=== PATIENT | female | born 1965 | race Caucasian/White ===

== ENCOUNTER 2021-04-04 12:31 | Emergency (ER) | payer OTHER ==
--- NOTE | 2021-04-04 13:07 | ERPHSYRPT ---
- History of Present Illness Time Seen by Provider: 04/04/21 13:04 Source: patient Exam Limitations: no limitations Patient Subjective Stated Complaint: pt here for congestion, sob,and wheezes since 03/31/20, no fever Triage Nursing Assessment: pt alert, resp easy, wheezes heard, skin w/d/p. face mask in place Physician History: Patient is 55-year-old female with significant past medical history of hypertension diabetes hyperlipidemia history of bipolar disorder started having nasal congestion chest congestion for last 3 to 4 days. She called her primary care physician and they advised her to take [id number] medication for her nasal congestion. Since yesterday her nasal congestion also got worse as well a s she started developing some chest congestion and getting short of breath and has developed wheezing. So she came to the emergency room for further evaluation. She denies any fever chills nausea vomiting abdominal pain urinary trouble blood in the urine or pain while urination. Timing/Duration: day(s) Associated Symptoms: shortness of breath, No nausea, No vomiting, No abdominal pain, No heartburn, No diaphoresis, No cough, No chills, No chest pain, No fever, No headaches, No loss of appetite, No malaise, No rash, No syncope, No seizure, No weakness Allergies/Adverse Reactions: sulfamethoxazole [From Bactrim] Allergy (Verified 04/04/21 12:50) trimethoprim [From Bactrim] Allergy (Verified 04/04/21 12:50) Home Medications: Amlodipine Besylate 5 mg [Norvasc 5 mg] 1 ea DAILY 04/04/21 [History] Metformin HCl 500 mg [Glucophage 500 MG] 1 ea BID 04/04/21 [History] Sertraline HCl 50 mg [Zoloft 50 mg Tablet] 1 ea DAILY 04/04/21 [History] Simvastatin 10 mg [Zocor 10MG] 1 ea DAILY 04/04/21 [History] Hx Influenza Vaccination/Date Given: Yes Hx Pneumococcal Vaccination/Date Given: No Immunizations Up to Date: Yes Travel Risk - International Travel Have you traveled outside of the country in past 3 weeks: No - Coronavirus Screening Are you exhibiting any of the following symptoms?: Yes Symptoms: Shortness of Breath Close contact with a COVID-19 positive Pt in past 14-21 Days: No - Vaccine Status Have you recieved a Covid-19 vaccination: Yes Hat Sprayer: Pfizer - Vaccination Dates Date of 2cond Vaccination (if applicable): ? - Review of Systems Constitutional: No Fever, No Chills Eyes: No Symptoms Ears, Nose, & Throat: No Symptoms, Nose Congestion Respiratory: Wheezing, No Cough, No Dyspnea Cardiac: No Chest Pain, No Edema, No Syncope Abdominal/Gastrointestinal: No Abdominal Pain, No Nausea, No Vomiting, No Diarrhea Genitourinary Symptoms: No Dysuria Musculoskeletal: No Back Pain, No Neck Pain Skin: No Rash Neurological: No Dizziness, No Focal Weakness, No Sensory Changes Psychological: No Symptoms Endocrine: No Symptoms All Other Systems: Reviewed and Negative - Past Medical History Pertinent Past Medical History: Yes Respiratory History: Pneumonia Endocrine Medical History: Diabetes Type II - Past Surgical History Past Surgical History: Yes Respiratory: Other Female Surgical History: Tubal Ligation Other Surgical History: drained fluid from lungs - Social History Smoking Status: Former smoker Exposure to second hand smoke: No Drug Use: none Patient Lives Alone: Yes - Female History Hx Last Menstrual Period: post Hx Now: No - Nursing Vital Signs Nursing Vital Signs: Initial Vital Signs Temperature 97.3 F 04/04/21 12:41 Pulse Rate 96 H 04/04/21 12:41 Respiratory Rate 20 04/04/21 12:41 Blood Pressure 115/88 04/04/21 12:41 O2 Sat by Pulse Oximetry 97 04/04/21 12:41 Pain Scale Pain Intensity 0 - Physical Exam General Appearance: no apparent distress, alert Eye Exam: PERRL/EOMI, eyes nml inspection Ears, Nose, Throat Exam: normal ENT inspection, TMs normal, pharynx normal, moist mucous membranes Neck Exam: normal inspection, non-tender, supple, full range of motion Respiratory Exam: diminished breath sounds, wheezing, No respiratory distress Cardiovascular Exam: regular rate/rhythm, normal heart sounds, normal peripheral pulses Gastrointestinal/Abdomen Exam: soft, normal bowel sounds, No tenderness, No mass Back Exam: normal inspection, normal range of motion, No CVA tenderness, No vertebral tenderness Extremity Exam: normal inspection, normal range of motion, pelvis stable Neurologic Exam: alert, oriented x 3, cooperative, normal mood/affect, nml cerebellar function, nml station & gait, sensation nml, No motor deficits Skin Exam: normal color, warm, dry, No rash Lymphatic Exam: No adenopathy SpO2: 97 - Course Nursing assessment & vital signs reviewed: Yes - Radiology Exams Chest X-ray Interpretation: Reviewed by me, Negative, No Pneumonia, No Pneumothorax Ordered Tests: Active Orders 24 hr Category Date Time Status Oxygen-ED Only Nasal Cannula 2 lpm Care 04/04/21 13:02 Active CHEST 2 VIEWS (PA AND LAT) Stat Exams 04/04/21 13:03 Taken CBC W DIFF Stat Lab 04/04/21 13:18 Completed CMP Stat Lab 04/04/21 13:18 Completed Manual Differential NC Stat Lab 04/04/21 13:18 Completed NT PRO BNP Stat Lab 04/04/21 13:18 Completed Lab/Rad Data: Laboratory Result Diagrams 04/04/21 13:18 04/04/21 13:18 Laboratory Results 04/04/21 04/04/21 Range/Units 13:18 13:18 WBC 7.9 (4.0-10.5) K/mm3 RBC 4.09 L (4.1-5.4) M/mm3 Hgb 11.7 L (12.0-16.0) gm/dl Hct 36.7 (35-47) % MCV 89.7 (78-100) fl MCH 28.6 (26-32) pg MCHC 31.9 L (32-36) g/dl RDW 15.4 H (11.5-14.0) % Plt Count 165 (150-450) K/mm3 MPV 9.2 (7.5-11.0) fl Sodium 139 (137-145) mmol/L Potassium 4.5 (3.5-5.1) mmol/L Chloride 105 (98-107) mmol/L Carbon Dioxide 23 (22-30) mmol/L Anion Gap 15.3 H (5-15) MEQ/L BUN 15 (7-17) mg/dL Creatinine 1.44 H (0.52-1.04) mg/dL Estimated GFR 40.2 ML/MIN Glucose 157 H (74-106) mg/dL Calcium 9.3 (8.4-10.2) mg/dL Total Bilirubin 0.70 (0.2-1.3) mg/dL AST 22 (14-36) U/L ALT 20 (0-35) U/L Alkaline Phosphatase 78 (38-126) U/L NT-Pro-B Natriuret Pep 92.3 (0-900) pg/mL Serum Total Protein 6.9 (6.3-8.2) g/dL Albumin 3.9 (3.5-5.0) g/dL - Progress Progress: improved Counseled pt/family regarding: lab results, diagnosis, need for follow-up, rad results - Departure Departure Disposition: Home Clinical Impression: Bronchitis Condition: Stable Critical Care Time: No Referrals: JULIUS LINTON [Primary Care Provider] - CORAZON JARAMILLO NP [NON-STAFF PHY W/O PRIVILEGES] - Follow Up with PCP/3 days Additional Instructions: Discharge/Care Plan RICARDO COMBS was seen on 04/04/21 in the Emergency Room. The patient was counseled regarding Diagnosis,Lab results, Imaging studies, need for follow up and when to return to the Emergency Room. Prescriptions given: Discharge Note I have spoken with the patient and/or caregivers. I have explained the patient's condition, diagnosis and treatment plan based on the information available to me at this time. I have answered the patient's and/or caregiver's questions and addressed any concerns. The patient and/or caregivers have as good understanding of the patient's diagnosis, condition and treatment plan as can be expected at this point. The vital signs have been stable. The patient's condition is stable and appropriate for discharge from the emergency department. The patient will pursue further outpatient evaluation with the primary care physician or other designated or consulting physician as outlined in the discharge instructions. The patient and/or caregivers are agreeable to this plan of care and follow-up instructions have been explained in detail. The patient and/or caregivers have received these instruction. The patient/and or caregivers are aware that any significant change in condition or worsening of symptoms should prompt an immediate return to this or the closest emergency department or call 911. RICARDO COMBS was seen on 04/04/21 n the Emergency Room. At that time you were treated for an emergent condition, during your visit Laboratory, Radiology and/or other procedures may have been ordered. It is very important that you follow-up with your Primary Care Physician JULIUS LINTON within the next 24-48 hours to review your Emergency Room visit and the final results of testing that was ordered. Some test results such as Urine Cultures, Blood Cultures, and other cultures if ordered will not be finalized for 24-48 hours. If you do not have a Primary Care Provider please call the medical records department at [phone] ext [phone] to obtain a copy of your results or you may sign into our patient portal to obtain these results by visiting us @ [email or web address] and completing the following steps: 1. Click on the Patient Portal link 2. Click the Patient Self Enrollment Link to complete the enrollment form and entering your 3. Once the enrollment form is completed you will receive an email with a temporary ID and password at the email address you provided. 4. Next choose a user name and password. Your user name must be at least 4 characters long and your password must be at least 4 characters long. 5. Choose a security question from the list and provide your answer to the question. If you already have signed into the Health Portal you may access your Health Care Information 07/03 by the following steps: 1. Login to our website @ [email or web address] 2. Enter your original user name and password. FAQS The [facility] Health Portal is an online tool that contains your Lab Results, Radiology Reports, Visit History, Discharge Instructions and Health Summary Lab and Radiology Results will not be available for 72 hours on the portal. The Portal is a secure site, passwords are encryted and URLs are re-written so they cannot be copied and pasted. You and authorized family members are the only ones who can access your Portal. Also there is a timeout feature that protects your information if you leave the Portal page open. If you have technical difficulty please use the Contact Us link on the page this will allow you to submit any questions you have regarding the Portal or you may contact the Medical Record Department at [phone] ext [phone]. Prescriptions: Methylprednisolone Packet [Medrol Dosepack] 4 mg PO UD #30 packet Azithromycin [Zithromax] 250 mg PO UD 5 Days #6 tablet
[2021-04-04 13:20] LABS: Hematocrit 36.7 % (35-47); Hemoglobin 11.7 gm/dl (12.0-16.0); Mean Cell Volume 89.7 fl (78-100); Mean Corpuscular Hemoglobin 28.6 pg (26-32); Mean Corpuscular Hgb Concent. 31.9 g/dl (32-36); Mean Platelet Volume 9.2 fl (7.5-11.0); Platelet Count 165 K/mm3 (150-450); Red Blood Count 4.09 M/mm3 (4.1-5.4); Red Cell Distribution Width 15.4 % (11.5-14.0); White Blood Count 7.9 K/mm3 (4.0-10.5)
[2021-04-04 13:40] LABS: ALBUMIN 3.9 g/dL (3.5-5.0); ANION GAP 15.3 MEQ/L (5-15); BILIRUBIN,TOTAL 0.7 mg/dL (0.2-1.3); Calcium 9.3 mg/dL (8.4-10.2); Creatinine 1 1.44 mg/dL (0.52-1.04); EST GLOMERULAR FILTRATION RATE 40.2 ML/MIN; NT PRO BNP 92.3 pg/mL (0-900); Potassium 4.5 mmol/L (3.5-5.1); Total Protein 6.9 g/dL (6.3-8.2)
[2021-04-04 14:05] VITALS: O2SAT 97
[2021-04-04 14:10] VITALS: BP 111/81; PULSE 84
[2021-04-04 16:03] LABS: ANISOCYTOSIS 1+; BAND 1 % (0.0-2.0); Lymphocytes 16 % (24-44); Monocyte 1 % (0.0-12.0); Neutrophils 82 % (36.0-66.0); Platelet Estimate NORMAL (NORMAL); Total Cells Counted 100; Toxic Granulation 1+
--- NOTE | 2021-04-04 20:41 | XRAY ---
Indication: Congestion. Comparison: None PA/lateral chest clear of focal infiltrate, consolidation, or large effusion. Heart not enlarged. Bony thorax intact with mild degenerative changes throughout the spine. Impression: Nonacute chest.
== END 2021-04-04 14:27 | disposition home or self-care (01) ==
LOC: ED 12:31
DX: I10 Essential (primary) hypertension (principal); E11.9 Type 2 diabetes mellitus without complications; R09.89 Other specified symptoms and signs involving the circulatory and respiratory systems
CPT/HCPCS: 36415; 71046; 80053; 83880; 85025; 99284

== ENCOUNTER 2024-06-16 12:34 | Emergency (ER) | payer OTHER ==
--- NOTE | 2024-06-16 12:39 | ERPHSYRPT ---
- History of Present Illness Time Seen by Provider: 06/16/24 12:39 Source: patient, EMS Exam Limitations: no limitations Physician History: This is an obese 59-year-old white female patient who was brought into the emergency department by the paramedics secondary to a fall injury. Patient states that she slipped in the shower yesterday. Later that day her mother took her to the bank where she had pain in the left knee and slightly fell. She was able to walk and move on it. However this morning, she was having pain in that left knee that was keeping her from walking. She did not hit her head. She did not lose consciousness. She has no pain anywhere else. Patient lives alone with family nearby. She does not have transportation and therefore she called the paramedics to transport her to the emergency department for evaluation. Patient has a history of hyperlipidemia, diabetes and hypertension. Her primary care provider is Dr. Magaña Occurred: yesterday Quality: aching Severity of Pain-Max: moderate Severity of Pain-Current: moderate Lower Extremities Pain: hip: left, leg: left (Femur), knee: left Modifying Factors: Improves With: movement (Worsens), other (Standing worsens) Associated Symptoms: other Allergies/Adverse Reactions: sulfamethoxazole [From Bactrim] Allergy (Verified 06/16/24 12:40) trimethoprim [From Bactrim] Allergy (Verified 06/16/24 12:40) Home Medications: Amlodipine Besylate 5 mg [Norvasc 5 mg] 5 mg PO DAILY 04/04/21 [History] Sertraline HCl 50 mg [Zoloft 50 mg Tablet] 150 mg PO DAILY 04/04/21 [History] Simvastatin 10 mg [Zocor 10MG] 10 mg PO DAILY 04/04/21 [History] ALPRAZolam [Alprazolam] 0.5 mg PO BID 06/16/24 [History] Insulin Lispro [Humalog Kwikpen U-100] 35 unit SQ BID 06/16/24 [History] Liraglutide 1.8 mg SQ DAILY 06/16/24 [History] cloZAPine [Clozapine] 100 mg PO DAILY 06/16/24 [History] cloZAPine [Clozapine] 200 mg PO HS 06/16/24 [History] Hx Influenza Vaccination/Date Given: Yes Hx Pneumococcal Vaccination/Date Given: No Travel Risk - International Travel Have you traveled outside of the country in past 3 weeks: No - Emerging Infectious Disease Are you exhibiting symptoms associated with any current EIDs: No - Review of Systems Constitutional: No Symptoms Eyes: No Symptoms Ears, Nose, & Throat: No Symptoms Respiratory: No Symptoms Cardiac: No Symptoms Abdominal/Gastrointestinal: No Symptoms Genitourinary Symptoms: No Symptoms Musculoskeletal: Fall, Injury Skin: Other (Abrasion to skin of anterior left knee) Neurological: No Symptoms Psychological: No Symptoms Endocrine: No Symptoms Hematologic/Lymphatic: No Symptoms Immunological/Allergic: No Symptoms All Other Systems: Reviewed and Negative - Past Medical History Pertinent Past Medical History: Yes Respiratory History: Pneumonia Endocrine Medical History: Diabetes Type II - Past Surgical History Past Surgical History: Yes Respiratory: Other Female Surgical History: Tubal Ligation Other Surgical History: drained fluid from lungs - Social History Smoking Status: Former smoker Exposure to second hand smoke: No Drug Use: none Patient Lives Alone: Yes - Nursing Vital Signs Nursing Vital Signs: Initial Vital Signs Pulse Rate 97 H 06/16/24 12:38 Respiratory Rate 16 06/16/24 12:38 Blood Pressure 120/80 06/16/24 12:38 O2 Sat by Pulse Oximetry 91 L 06/16/24 12:38 Pain Scale Pain Intensity 2 - Physical Exam General Appearance: no apparent distress, alert, anxiety, obese Eyes, Ears, Nose, Throat Exam: normal ENT inspection, moist mucous membranes Neck Exam: normal inspection, non-tender, supple, full range of motion Cardiovascular/Respiratory Exam: chest non-tender, no respiratory distress Gastrointestinal/Abdominal Exam: non-tender Back Exam: normal inspection, normal range of motion, No CVA tenderness, No vertebral tenderness Hips Exam: bilateral: non-tender, normal inspection, normal range of motion Legs Exam: right leg: non-tender, left leg: soft tissue tenderness (Mid femur left side to palpation), bilateral leg: normal inspection, normal range of motion, no evidence of injury Knees Exam: right knee: non-tender, normal inspection, no evidence of injury, left knee: soft tissue tenderness (Anterior left knee), other (Abrasion to skin anterior left knee), bilateral knee: normal range of motion Ankle Exam: bilateral ankle: non-tender, normal inspection, normal range of motion, no evidence of injury Foot Exam: bilateral foot: non-tender, normal inspection, normal range of motion, no evidence of injury Neuro/Tendon Exam: normal sensation, normal motor functions, normal tendon functions, responds to pain, no evidence tendon injury Mental Status Exam: alert, oriented x 3, cooperative Skin Exam: normal color, warm, dry, abrasion (skin anterior left knee) SpO2 Interpretation: normal O2 Delivery: Room Air - Course Nursing assessment & vital signs reviewed: Yes Ordered Tests: Active Orders 24 hr Category Date Time Status FEMUR Stat Exams 06/16/24 12:50 Taken HIP UNI (2V) INCL PEL IF DONE Stat Exams 06/16/24 12:49 Taken KNEE (1 OR 2 VIEW) Stat Exams 06/16/24 12:49 Taken - Progress Progress: pain not gone completely, re-examined Progress Note: 06/16/24 12:58 My medical decision making and the assignment of low to moderate complexity to this patient's medical issue today is based on review of the patient's past medical history, review the patient's medication list, reviewed patient drug allergy list, history present illness and physical findings on examination. The workup in this patient includes pelvis and left hip x-ray, left femur x-ray, left knee x-ray. Differential diagnosis includes but is not limited to skin abrasion left knee, contusion left knee, left hip and left femur, dislocation/fracture left knee, left femur and left hip 06/16/24 13:34 I interpreted the patient's preliminary x-ray report of her left knee. There is no evidence of any acute fracture or dislocation. I interpreted the patient's preliminary x-ray report of her left femur. There is no evidence of acute fracture or dislocation. I interpreted the patient's preliminary x-ray report of her pelvis and left hip. There is no evidence of acute fracture or dislocation Counseled pt/family regarding: diagnosis, need for follow-up, rad results Medical Desision Making - Independent Historian Additional History obtained from: Unstacker/EMT - Diagnostic Testing Diagnostic test were ordered, analyzed, and reviewed by me: Yes Radiological Interpretation: Interpreted by me - Risk of complications Low Risk: Low risk of morbidity from additional dx testing or treatment - Departure Departure Disposition: Home Clinical Impression: Fall with no significant injury, Abrasion, left knee, initial encounter, Left anterior knee pain Condition: Stable Critical Care Time: No Referrals: JULIUS LINTON [Primary Care Provider] - Follow up/PCP as directed Additional Instructions: Ice pack to left knee 3-4 times a day for the next 2 to 3 days. Call your primary care provider on 06/18/2024 to make arrangements for follow-up appointment to be seen in the next 3 to 5 days for further evaluation management. Your other option is to follow-up at the [facility] orthopedic clinic Tuesday through Tuesday 8 AM to 10 AM. It is a walk-in clinic and you do not need to have an appointment. Use Tylenol and ibuprofen for pain control if there are no contraindications to do so. Activity as tolerated. Keep your abrasion site clean daily with soap and water and you may apply thin layer of antibiotic ointment to the skin abrasion 1-2 times a day
[2024-06-16 12:50] VITALS: TEMP 98.1
[2024-06-16 13:31] VITALS: O2SAT 95
[2024-06-16] MEDS ORDERED: PERCOCET TABLET 5/325MG ONE (13:35)
[2024-06-16] MEDS: PERCOCET TABLET 5/325MG PO STA (13:36)
[2024-06-16 13:59] VITALS: BP 118/72; PULSE 80; RESP 18
--- NOTE | 2024-06-16 18:58 | XRAY ---
Indication: Pain following fall. Comparison: None 2 view left knee demonstrates minimal medial joint space narrowing and tiny suprapatella spurring. No other bony, articular, or soft tissue abnormalities.
--- NOTE | 2024-06-16 18:58 | XRAY ---
Indication: Pain following fall. Comparison: None 2 view left femur demonstrates tiny suprapatella spurring. No other bony, articular, or soft tissue abnormalities.
--- NOTE | 2024-06-16 19:00 | XRAY ---
Indication: Pain following fall. Comparison: None AP pelvis and 2 view left hip demonstrates mild lower lumbar degenerative changes. No other bony, articular, or soft tissue abnormalities.
== END 2024-06-16 13:50 | disposition home or self-care (01) ==
LOC: ED 12:34
DX: S80.212A Abrasion, left knee, initial encounter (principal); W18.2XXA Fall in (into) shower or empty bathtub, initial encounter; Y92.002 Bathroom of unspecified non-institutional (private) residence as the place of occurrence of the external cause; M25.562 Pain in left knee; E78.5 Hyperlipidemia, unspecified; E11.9 Type 2 diabetes mellitus without complications; I10 Essential (primary) hypertension; Z79.4 Long term (current) use of insulin; Z79.85 Long-term (current) use of injectable non-insulin antidiabetic drugs; Z79.899 Other long term (current) drug therapy; Z59.82 Transportation insecurity
CPT/HCPCS: 73502; 73552; 73560; 99283; A9270-GY